=== PATIENT | male | born 1995 | race Caucasian/White ===

== ENCOUNTER 2019-03-01 17:24 | Emergency (ER) | payer OTHER ==
[2019-03-01] MEDS ORDERED: methylPREDNISolone Sodium Succinate 125 MG/2 ML SDV IM ONE (17:25)
[2019-03-01] MEDS ORDERED: Albuterol/Ipratropium 3.0-0.5 MG/3 ML Neb Soln NEB ONE (17:25)
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
--- NOTE | 2019-03-01 18:26 | CR ---
INDICATION: Cough, shortness of breath TECHNIQUE: Chest 1 view. COMPARISON: None FINDINGS: The heart is normal in size. The pulmonary vasculature is within normal limits. The lungs are clear without focal consolidation, pleural effusion or pneumothorax. The bones are unremarkable. IMPRESSION: No acute process. Dictated by Belen Chavez MD @ 03/01/2019 6:23:24 PM Dictated by: Belen Chavez MD @ 03/01/2019 18:23:36 (Electronically Signed)
== END 2019-03-01 18:41 | disposition home or self-care (01) ==
LOC: MW.ED 17:24
DX: J45.901 Unspecified asthma with (acute) exacerbation (principal)
CPT/HCPCS: 71045; 94640; 96372; 99285; J2930; J7620-GY